=== PATIENT | female | born 1935 | race Caucasian/White ===

== ENCOUNTER 2016-12-06 12:14 | Emergency (ER) | payer MEDICARE ==
[~2016-12-06] VITALS: Ht 175.3 cm; Wt 77.1 kg
[~2016-12-06 12:14] MED LIST: ACET325T38 PO; ACIDOPHILUS; AML5T PO; AMLO1CAP7 PO; ASCO2000 PO; BIOT5CAP10 PO; BSC10SU PR; CALC1TAB38 PO; CHROMIUM PICOLINATE PO; COD LIVER OIL PO; CPR500T PO; CRAN200C PO; DCS100C PO; DIPH25TA82 PO; DOCU100T7 PO; E400C PO; FERR27TA PO; FERR325C PO; FLAX340P PO; FOLI0.4T2; GARL400T13 PO; GLUC1CAP69 PO; HALO1TAB PO; HYDR-3583 PO; LECITHIN PO; LORA1TAB PO; LUTE10TA PO; MAGN-47 PO; MAGN400T6 PO; NF-NI250ER; NIAC125C3 PO; NITR-65 PO; OMEG1CAP58 PO; OSLT75CRX PO; OXYC1TAB87 PO; POTA99TA7 PO; ROCEPHIN IM; RUTIN PO; SELE200T2 PO; SNN187T PO; TRAM50TA2 PO; TURMERIC PO; VITA150T; VITA1TAB74 PO; VITAMIN B; VITAMIN B6 PO; [UNRECOGNIZED DRUG - OTHER]; [UNRECOGNIZED DRUG - OTHER] PO
[2016-12-06 12:55] LABS: BILIRUBIN,URINE NEGATIVE (NEGATIVE); KETONES,URINE NEGATIVE (NEGATIVE); LEUKOCYTE ESTERASE ,URINE 3+ (NEGATIVE); NITRITE,URINE NEGATIVE (NEGATIVE); PH,URINE 5 (5-9); PROTEIN,URINE 2+ (NEGATIVE); UROBILINOGEN,URINE NORMAL (NORMAL)
[2016-12-06 13:06] LABS: WBC,URINE TNTC /HPF
[2016-12-06 13:07] LABS: BASOPHILS % (AUTO) 0 % (0-10); EOSINOPHILS # (AUTO) 0.2 10^3/uL (0.0-0.3); EOSINOPHILS % (AUTO) 4 % (0-10); LYMPHOCYTES # (AUTO) 2.2 X 10^3 (1.0-4.0); LYMPHOCYTES % (AUTO) 43 % (12-44); MEAN CORPUSCULAR HEMOGLOBIN 29 PG (25-34); MEAN CORPUSCULAR HGB CONC 33 G/DL (32-36); MEAN CORPUSCULAR VOLUME 90 FL (80-99); MEAN PLATELET VOLUME 10.7 FL (7.4-10.4); MONOCYTES # (AUTO) 0.3 X 10^3 (0.0-1.0); MONOCYTES % (AUTO) 7 % (0-12); NEUTROPHILS # (AUTO) 2.4 X 10^3 (1.8-7.8); NEUTROPHILS % (AUTO) 46 % (42-75); PLATELET COUNT 222 10^3/uL (130-400); RED BLOOD COUNT 3.96 10^6/uL (4.35-5.85); RED CELL DISTRIBUTION WIDTH 13.4 % (10.0-14.5); WHITE BLOOD COUNT 5.1 10^3/uL (4.3-11.0)
[2016-12-06] MEDS ORDERED: NS IV 1000 ML 1,000 ML IV ONE (13:08)
[2016-12-06 13:13] LABS: ALBUMIN 3.9 G/DL (3.2-4.5); BILIRUBIN,TOTAL 0.4 MG/DL (0.1-1.0); CALCIUM 9.4 MG/DL (8.5-10.1); CREATININE SERUM 0.98 MG/DL (0.60-1.30); MAGNESIUM 2.2 MG/DL (1.8-2.4); POTASSIUM 4.3 MMOL/L (3.6-5.0); TOTAL PROTEIN 6.5 G/DL (6.4-8.2)
[2016-12-06] MEDS ORDERED: cefTRIAXone INJECTION 1,000 MG in NS (IVPB) 50 ML IV ONE (13:15)
[2016-12-06] MEDS ORDERED: NITR100C PO (13:32)
--- NOTE | 2016-12-06 13:32 | ED General ---
General Chief Complaint: Altered Mental Status Stated Complaint: UNRESPONSIVE Nursing Triage Note: PT ARRIVED PER EMS, PT FROM [place], STAFF STATES MAY HAVE HAD SEIZURE, UP IN CHAIR, PT RESPONSIVE TO STERNAL RUB, PT MOVES ALL EXT, PT ADJUSTS SELF FOR COMFORT, PT HAS SL IN L AND #22 BY EMS. Nursing Sepsis Screen: No Definite Risk Source of Information: Patient Exam Limitations: No Limitations History of Present Illness Time Seen by Provider: 12:16 Initial Comments This patient presents to the emergency room [facility] where she was found to have decreased responsiveness a questionably abnormal breathing. Staff stated she was not engaging in conversation and was not following instructions as she normally would. assisted staff questioned whether she had convulsions as well. Oxygen saturation for EMS was 90 percent on room air and then applied oxygen at 4 L per nasal cannula. Fingerstick blood sugar was 121. There were no specific localizing neurologic deficits. She is alert and interactive for this provider on arrival. There is a student outreach coordinator in the emergency room who also works at [employer] where this patient resides. She remarks that this patient's behaviors are not far off of baseline. Allergies and Home Medications Allergies Coded Allergies: esomeprazole (Unverified Allergy, Mild, 12/11/09) etodolac (Unverified Allergy, Mild, 12/11/09) hydrocodone (Unverified Allergy, Mild, 12/11/09) ofloxacin (Unverified Allergy, Mild, 12/11/09) sulfamethoxazole (Unverified Allergy, Mild, 12/11/09) trimethoprim (Unverified Allergy, Mild, 12/11/09) Home Medications Acetaminophen 325 Mg Tablet, 650 MG PO Q4H PRN for PAIN OR TEMP, (Reported) TAKES 2 (325MG) TABLETS Amlodipine/Benazepril 1 Each Capsule, 1 CAP PO DAILY, (Reported) Nitrofurantoin Macrocrystal 100 Mg Capsule, 100 MG PO BID, #14 Prescribed by: JAN KING on 12/06/16 1332 Nitrofurantoin/Nitrofuran Mac 100 Mg Capsule, 1 EACH PO BID, #20 FOR INFECTION Prescribed by: RUEL RAMOS on 08/19/141934 Oseltamivir Phosphate 75 Mg Cap, 75 MG PO BID, #10 Prescribed by: RUEL RAMOS on 08/19/141934 Senna 8.6 Mg Tab, 8.6 MG PO BID, #60 Prescribed by: DORIS NICHOLAS on 05/24/14 0857 Constitutional: see HPI EENTM: no symptoms reported Respiratory: no symptoms reported Cardiovascular: no symptoms reported Gastrointestinal: no symptoms reported Genitourinary: no symptoms reported : No Musculoskeletal: no symptoms reported Skin: no symptoms reported Psychiatric/Neurological: See HPI Past Nyvlads-Yilwoy-Usxvfa Hx Patient Social History Alcohol Use: Denies Use Recreational Drug Use: No Smoking Status: Never a Smoker Recent Foreign Travel: No Contact w/Someone Who Travel: No Recent Infectious Disease Expo: No Recent Hopitalizations: No Immunizations Up To Date Tetanus Booster (TDap): Less than 5yrs Date of Pneumonia Vaccine: Oct 04, 2013 Date of Influenza Vaccine: Oct 04, 2013 Seasonal Allergies Seasonal Allergies: No Surgeries HX Surgeries: Yes (Fx hip) Surgeries: Orthopedic Respiratory Hx Respiratory Disorders: No Cardiovascular Hx Cardiac Disorders: Yes (HTN) Neurological Hx Neurological Disorders: Yes (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) Neurological Disorders: Stroke Reproductive System Hx Reproductive Disorders: No Genitourinary Hx Genitourinary Disorders: No Gastrointestinal Hx Gastrointestinal Disorders: Yes (FISSURE RECTAL) Musculoskeletal Hx Musculoskeletal Disorders: Yes Musculoskeletal Disorders: Arthritis Endocrine Hx Endocrine Disorders: No HEENT HX ENT Disorders: No Cancer Hx Cancer: No Psychosocial Hx Psychiatric Problems: Yes Behavioral Health Disorders: Anxiety Integumentary HX Skin/Integumentary Disorder: No Blood Transfusions Hx Blood Disorders: No Physical Exam Vital Signs Vital Sign - Last 12Hours 12/06/16 12:15 Temp 97.3 Pulse 86 Resp 18 B/P (MAP) 126/93 Pulse Ox 94 O2 Delivery Room Air Capillary Refill : Less Than 3 Seconds General Appearance: No Apparent Distress, WD/WN HEENT: PERRL/EOMI, Normal ENT Inspection, Pharynx Normal Neck: Normal Inspection Respiratory: Lungs Clear, Normal Breath Sounds, No Accessory Muscle Use, No Respiratory Distress Cardiovascular: Regular Rate, Rhythm, No Edema Gastrointestinal: Normal Bowel Sounds, Non Tender, Soft Extremity: Normal Inspection, No Pedal Edema Neurologic/Psychiatric: Alert, Other (Disoriented to place and month. Does not man is well for a good exam) Skin: Normal Color, Warm/Dry Progress/Results/Core Measures Results/Orders Lab Results My Orders Vital Signs/I&O Blood Pressure Mean: 104 Progress Note : Progress Note Case was reviewed with Dr. Dallas, her primary care provider. He advised against admission. He requested treatment with Rocephin followed by an oral antibiotic. Rocephin was administered along with IV fluids. Diagnostic Imaging Diagonstic Imaging: Xray Plain Films/CT/US/NM/MRI: chest Comments Chest x-ray viewed by me and report reviewed. See report below: NAME: [facility] REC#: [id number] PT STATUS: DEP ER : 1935 PHYSICIAN: JAN CORTÉS MD ADMIT DATE: 12/06/16/ER Signed Date of Exam: 12/06/16 CHEST 1 VIEW, AP/PA ONLY EXAMINATION: Portable semi-upright radiograph of the chest. INDICATION: Unresponsive. FINDINGS: There is elevation of the right hemidiaphragm. There is minimal bibasilar atelectasis. The heart size is normal. No effusion or pneumothorax. The mediastinum and alan appear unremarkable. IMPRESSION: Elevated right hemidiaphragm. Minimal bibasilar atelectasis. Dictated by: Dictated on workstation # [id number] Dict: 12/06/16 1328 Trans: 12/06/16 1440 Interpreted by: SERJIO DAVILA MD Electronically signed by: SERJIO DAVILA MD 12/06/16 1440 Departure Impression Impression: Primary Impression: UTI (urinary tract infection) Qualified Codes: N39.0 - Urinary tract infection, site not specified Additional Impressions: Altered mental status Qualified Codes: R41.82 - Altered mental status, unspecified Severe dementia Disposition: 01 HOME, SELF-CARE Condition: Improved Departure-Patient Inst. Decision time for Depature: 13:30 Referrals: TONY DALLAS MD (PCP/Family) Primary Care Physician Patient Instructions: Urinary Tract Infections in Adults Add. Discharge Instructions: Encourage plenty of clear liquids. Complete antibiotics as prescribed. Obtain urine culture results on Tuesday and call results to Dr. Dallas. Contact Dr. Dallas for worsening symptoms. All discharge instructions reviewed with patient and/or family. Voiced understanding. Scripts Nitrofurantoin Macrocrystal (Nitrofurantoin) 100 Mg Capsule 100 MG PO BID, #14 CAP Prov: JAN CORTÉS MD 12/06/16 Copy Copies To 1: TONY DALLAS MD, JOSHUA T MD Dec 06, 2016 13:32
--- NOTE | 2016-12-06 13:35 | Diagnostic Imaging Report ---
EXAMINATION: Portable semi-upright radiograph of the chest. INDICATION: Unresponsive. FINDINGS: There is elevation of the right hemidiaphragm. There is minimal bibasilar atelectasis. The heart size is normal. No effusion or pneumothorax. The mediastinum and alan appear unremarkable. IMPRESSION: Elevated right hemidiaphragm. Minimal bibasilar atelectasis. Dictated by: Dictated on workstation # [id number]
[2016-12-06 14:18] VITALS: BP 101/75
== END 2016-12-06 14:17 ==
LOC: EDUNIT# 12:14 → ER 12:16
DX: R41.82 Altered mental status, unspecified (principal); N39.0 Urinary tract infection, site not specified; F03.90 Unspecified dementia, unspecified severity, without behavioral disturbance, psychotic disturbance, mood disturbance, and anxiety
CPT/HCPCS: 36415; 71010; 80053; 81000; 83735; 85025; 87077; 87088; 87186; 96374